=== PATIENT | female | born 1990 | race Caucasian/White ===

== ENCOUNTER 2019-07-07 17:35 | Emergency (ER) | payer OTHER ==
[~2019-07-07] VITALS: Ht 162.6 cm; Wt 68.0 kg
[2019-07-07] MEDS ORDERED: PRENATAL + DHA1 EAC1 (18:23)
[2019-07-07] MEDS ORDERED: SYNTHROID88 MCG (18:23)
== END 2019-07-07 22:22 | disposition home or self-care (01) ==
LOC: ER 17:35
DX: K52.1 Toxic gastroenteritis and colitis (principal); E86.0 Dehydration; T50.995A Adverse effect of other drugs, medicaments and biological substances, initial encounter; J06.9 Acute upper respiratory infection, unspecified

== ENCOUNTER 2020-01-02 11:53 | Outpatient (CLI) | payer OTHER ==
[~2020-01-02 11:53] MED LIST: PRENATAL + DHA1 EAC1; SYNTHROID88 MCG
== END 2020-01-02 12:37 | disposition home or self-care (01) ==
LOC: NST 11:53
DX: Z34.83 Encounter for supervision of other normal pregnancy, third trimester (principal)

== ENCOUNTER 2020-01-17 08:12 | Outpatient (CLI) | payer OTHER | END 2020-01-17 09:02 | disposition home or self-care (01) | LOC: NST 08:12 | PROVIDERS: ATTEND Obstetrics & Gynecology | DX: O60.00 Preterm labor without delivery, unspecified trimester (principal) ==

== ENCOUNTER 2020-02-18 08:15 | Inpatient (IN) | payer OTHER ==
[~2020-02-18] VITALS: Ht 162.6 cm; Wt 3.2 kg
[2020-02-18] MEDS ORDERED: SYNTHROID112 MCG PO (09:26)
== END 2020-02-22 16:59 | disposition home or self-care (01) | DRG 785 ==
LOC: ADM 08:15 → EDSTATUS 08:15 → OB/GYN 02-20 06:45 → O/R 02-20 06:45 → LDR 02-20 07:00 → OB/GYN 02-20 13:30
PROVIDERS: ADMIT Obstetrics & Gynecology; ATTEND Obstetrics & Gynecology
PROC: 0UL70ZZ Occlusion of Bilateral Fallopian Tubes, Open Approach (ICD-10-PCS; 2020-02-20)
PROC: 4A1HXCZ Monitoring of Products of Conception, Cardiac Rate, External Approach (ICD-10-PCS; 2020-02-20)
PROC: 10D00Z1 Extraction of Products of Conception, Low, Open Approach (ICD-10-PCS; principal; 2020-02-20 07:00)
DX: O82 Encounter for cesarean delivery without indication (principal); Z3A.39 39 weeks gestation of pregnancy; Z37.0 Single live birth; Z30.2 Encounter for sterilization